=== PATIENT | female | born 1980 | race Caucasian/White ===

== ENCOUNTER 2019-03-10 19:08 | Outpatient (REF) | payer BC, SELFPAY ==
[2019-03-12 12:15] LABS: Chlamydia Result Negative; GC Result Negative; Specimen Description URINE
== END 2019-03-10 19:28 ==
LOC: LBN 19:08
PROVIDERS: PCP Family Medicine; Visit Provider Obstetrics & Gynecology Gynecology
DX: Z11.3 Encounter for screening for infections with a predominantly sexual mode of transmission (principal)
CPT/HCPCS: 87491; 87591

== ENCOUNTER 2020-12-19 14:15 | Outpatient (REF) | payer BC, SELFPAY ==
--- NOTE | 2020-12-19 13:30 | PAPFT_PTH ---
PATIENT: Lisandra Huntley LOC: [facility] U#:[id number] AGE/SX: 40/F ROOM: RE12/19/[address]: BENJAMÍN Vanegas : 1980 BED: DIS: 12/19/2020 SPEC #: [id number] RECD: 12/19/20 17:40 STATUS: VERN REChristie #: [id number] ISHAAN: 12/19/20 13:[address]: Meghana Vega DEPT: [facility] Cytology RECD BY: Kassidy Bui ENTERED: 12/19/20 17:40 SP TYPE: PAPFT OTHR DR: Arpita Pruett Tissues: 1 - CX/ENDOCX FOR PAP SMEARS Procedures: PAP THIN PREP/UVM Screening HPV DNA PROBE Comments: [id number]
== END 2020-12-19 14:16 | disposition home or self-care (01) ==
LOC: LBN 14:15
PROVIDERS: PCP Family Medicine; Visit Provider Nurse Practitioner Family
DX: Z12.4 Encounter for screening for malignant neoplasm of cervix (principal); Z11.51 Encounter for screening for human papillomavirus (HPV)
CPT/HCPCS: 88142; 87624

== ENCOUNTER 2023-08-29 09:20 | Day surgery (SDC) | payer BC, SELFPAY ==
--- NOTE | 2023-08-28 16:29 | W.COLOREPORT ---
Date of service: 08/29/23 Time of Service: 10:50 Colonoscopy Report Date of procedure: 08/29/23 Pre-op diagnosis general: Rectal pain and bleeding. History of fistula Post-op diagnosis procedure note: other (anal fissure) Surgeon: Maria T Castlelano Anesthesia Type: General:No Airway Estimated blood loss (mL): 0 Pathology: none sent Complications: None Disposition: same day Prep: Miralax/Dulcolax Retraction Time: 10 Procedure Description: After informed consent was obtained the patient was taken to the procedure room and placed in a left decubitous position. Monitors were applied and a time out was done. The patients name, date of , procedure, allergies to medications and metal in their body was reviewed. The patient was then sedated. Once sedated and comfortable a rectal exam was done. External exam-hemorrhoidal. Internal exam revealed a normal sphincter tone and no palpable masses. The scope was then introduced and retrofelexed. No internal hemorrhoids were identified. there is no rectal stenosis. She has an anal fissure 6 o'clock position, it appears to be approximately 50% healed. There is no active bleeding.. The scope was then advanced to the cecum difficulty. The TI and appendiceal orifice were identified. The prep was BBPS 3 in all segments for total of 9. The scope was then slowly retracted over 10 minutes. There are no polyps, AVMs, or diverticula visualized today. Mucosa appears pink and healthy with a normal vascular. The scope was removed and the patient was woken up and taken back to Same day surgery in stable condition. The patient tolerated the procedure well and there were no immediate complications. Follow up: The patient should follow up in 10 years unless they develop changes in bowel habits or other new gastrointestinal complaints.
--- NOTE | 2023-08-28 16:30 | PDOC.DSDIS_ITS ---
Date of service: 08/29/23 Time of Service: 10:54 Discharge Plan Disposition Patient Disposition: Home Condition: Good Discharge Details Reason For Visit: Exam under anesthesia and colon scope Attending Provider: Maria T Castellano Primary Care Provider: Donya Smith Home Meds and New Rx's Prescriptions: Continued omega-3 fatty acids 500 mg capsule 500 mg PO DAILY nitroglycerin 2 % ointment 1 inch transdermal BID Qty: 48 0RF Patient Comments: 08/29/23 pt has not used rhus extracts-herbal drugs 150 mg tablet 1 tab PO DAILY PRN (Reason: joint pain) Patient Comments: Rhus tox 30C cholecalciferol (vitamin D3) 10 mcg/mL (400 unit/mL) drops 10 mcg PO DAILY ascorbic acid (vitamin C) 500 mg capsule 500 mg PO DAILY valacyclovir 500 mg tablet 500 mg PO BID Qty: 30 2RF glucosamine sulfate 2KCl 1,000 MG tablet 1,000 mg PO DAILY Zyrtec 10 MG capsule 10 mg PO DAILY norethindrone (contraceptive) 0.35 mg tablet 0.35 mg PO DAILY Qty: 84 3RF mirtazapine 15 mg tablet 15 mg PO QHS lorazepam 0.5 mg tablet 0.5 mg PO QHS PRN multivitamin [Daily Multi-Vitamin] 1 EACH tablet 1 ea PO DAILY naproxen sodium [Aleve] 220 MG capsule 220 mg PO DIRECTED PRN Discontinued bisacodyl [Dulcolax (bisacodyl)] 5 mg tablet,delayed release (DR/EC) 5 mg PO ONCE Qty: 4 0RF Rx Instructions: Take per colonoscopy instructions provided by ordering providers office polyethylene glycol 3350 17 gram/dose powder 17 g PO ONCE Qty: 238 0RF Rx Instructions: Take per colonoscopy instructions provided by ordering providers office Discharge Instructions Additional Instructions: DSU Colonoscopy Post- Op Instructions Instructions for Everyone who is given Anesthesia: For your safety, please do the following for the next twenty-four (24) hours: *Do Not operate a motor vehicle (car, truck, motorcycle, etc.) *Do Not drink alcoholic beverages or use any recreational drugs for the first 24 hours or while taking pain medications. The medications in your body may have a reaction that can be dangerous. *Do Not make any important decisions or sign any important papers. Findings: Anal fissure -Fiber supplement daily -Repeat colonoscopy in 10 years -Continue Nitro ointment twice a day Follow up: 6 wks time 1. No lifting over 20 pounds or strenuous activity for the first 24 hours after your procedure. After 24 hours there are no restrictions on your activity but you may feel fatigued for a few days. 2. After you arrive home you may have a light meal and return to your normal diet as you can tolerate it without feeling sick to your stomach. 3. You may have a bloated, gaseous feeling in your belly (abdomen) after a colonoscopy. Passing gas and belching will help. Walking or lying down on your left side with your knees flexed may relieve the discomfort. Call the office at [phone] (Office) or [phone] (Hospital) right away if you notice any of the following: a.Vomiting of blood or ?coffee ground stools?. b.Rectal bleeding 1Tbsp, blood clots or continuous bleeding. c.Severe belly (abdominal) pain. d.A hard distended belly (abdomen) and an inability to pass gas. 4. Please don?t expect to have a normal BM (bowel movement) for 2-3 days after your procedure. 5. If there are questions regarding the findings of your procedure, please contact your doctor 6. If you are unable to contact your doctor with a problem, contact the hospital at [phone]. 7. Continue all your regular medications unless directed otherwise. I understand the above instructions and have no questions. Signature of Patient or Adult Escort Name of Responsible Adult Escort Signature of Nurse Date/Time Activity:: See above Diet:: See above DS: Diagnosis Discharge Diagnosis (1) Rectal bleeding: Status: Acute (2) Rectal pain, chronic: Status: Acute Asessment and Plan: The patient is seen and examined after their colonoscopy.? The patient has been able to pass gas.? They are not having abdominal pain.? They have been able to tolerate liquids and a snack.? They do not have any nausea or vomiting.? They are not having any chest pain or shortness of breath.??? They are not having any rectal bleeding. Their vital signs have been stable-see nursing notes. We discussed findings during their colonoscopy, and any biopsies that were done/polyps that were removed. The patient will be sent a letter with any biopsy results, and when to repeat the colonoscopy.-see discharge instructions. Patient was given explicit instructions to follow-up regarding colonoscopy-refer to discharge instructions.? We reviewed resumption of medications.Patient verbalized understanding and discharged in stable and satisfactory condition- See nursing notes (3) Internal hemorrhoids: Status: Acute (4) Depression: Status: Chronic (5) Anxiety: Status: Chronic (6) Chronic anal fissure: Status: Acute
[2023-08-29 09:40] VITALS: BP 119/95; PULSE 109; RESP 16; TEMP 36.4; O2SAT 99
[2023-08-29] MEDS: Lactated Ringers 1,000 ML 80 ML IV (10:03)
[2023-08-29 10:08] VITALS: BMI 33.5
--- NOTE | 2023-08-29 10:08 | W.ANESPRE ---
General Info Date of Service Date Performed: 08/29/23 Height: 5 ft 3 in Weight: 85.9 kg Body Mass Index (BMI): 33.5 Surgical Procedure: Operation Date: 08/29/23 10:05 Proposed Procedure Side Surgeon p Colonoscopy Maria T Castellano, Actual Procedure Side Surgeon p Colonoscopy Right Maria T Castellano, Meds Allergies and Home Medications Allergies Allergy/AdvReac Type Severity Reaction Status Date / Time Penicillins Allergy Unknown Verified 08/29/23 09:55 povidone-iodine Allergy Unknown Verified 08/29/23 09:55 [From Betadine] iodine Allergy Skin Rash Verified 08/29/23 09:55 citalopram hydrobromide AdvReac Intermediate Psychosis Verified 08/29/23 09:55 [From Celexa] clindamycin AdvReac Intermediate rectal Verified 08/28/23 10:34 bleeding codeine AdvReac Intermediate increased Verified 08/29/23 09:55 hr clonazepam AdvReac Mild Swelling/Ed Verified 08/29/23 09:55 sami Home Medication Medication Instructions Recorded multivitamin (Daily Multi-Vitamin 1 ea PO DAILY 12/05/12 tablet) naproxen sodium 220 mg capsule 220 mg PO DIRECTED PRN 12/05/12 (Aleve) cetirizine 10 mg capsule (Zyrtec) 10 mg PO DAILY 03/28/15 glucosamine sulfate 2KCl 1,000 mg 1,000 mg PO DAILY 03/28/15 tablet omega-3 fatty acids 500 mg capsule 500 mg PO DAILY 03/15/22 rhus extracts-herbal drugs 150 mg 1 tab PO DAILY PRN joint pain 09/18/22 tablet ascorbic acid (vitamin C) 500 mg 500 mg PO DAILY 03/31/23 capsule cholecalciferol (vitamin D3) 10 10 mcg PO DAILY 03/31/23 mcg/mL (400 unit/mL) oral drops valacyclovir 500 mg tablet 500 mg PO BID #30 tabs 03/31/23 norethindrone (contraceptive) 0.35 0.35 mg PO DAILY #84 tabs 04/21/23 mg tablet lorazepam 0.5 mg tablet 0.5 mg PO QHS PRN 08/07/23 mirtazapine 15 mg tablet 15 mg PO QHS 08/07/23 nitroglycerin 2 % transdermal 1 inch transdermal BID #48 grams 08/22/23 ointment Current Visit Medications: Current Medications Generic Name Dose Route Start Last Admin Trade Name Marlene PRN Reason Stop Dose Admin Ringer's Solution 1,000 mls @ 80 mls/hr 08/29/23 06:00 08/29/23 10:03 IV 08/29/23 23:59 80 mls/hr INFUSION PETERSON Administration IV Miscellaneous Supplies 1 each 08/29/23 06:00 Iv Access IV 08/29/23 23:59 DIRECTED PETERSON Sodium Chloride 0 ml 08/29/23 06:00 Normal Saline Flush 10 Ml Syr IV 08/29/23 23:59 PRN PRN Sodium Chloride 0 ml 08/29/23 06:00 Normal Saline 10 Ml Vial IJ 08/29/23 23:59 DIRECTED PRN Sterile Water 0 ml 08/29/23 06:00 Water,Injection,Sterile 10 Ml Vial IJ 08/29/23 23:59 DIRECTED PRN PFSH Active Problems Active Problems: Problem Status Onset Code Anxiety F41.9 Rectal bleeding K62.5 Rectal pain, chronic K62.89, G89.29 Internal hemorrhoids K64.8 Depression F32.A Hallux valgus M20.10 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 K06.9, B00.9 Reactive depression (situational) 08/31/13 F32.9 Medical History Medical History PMS (premenstrual syndrome) Overweight Osteoarthritis Sleep disturbance History of ovarian cyst Surgical History Surgical History H/O unilateral oophorectomy left, 2013 Anal fistula fistulectomy 2005 Tobacco Smoking/Tobacco Use Status: Never Alcohol Alcohol Intake: current Alcohol intake frequency: a few times a month Substance Use Substance use: Never Substance use type: does not use Prental History History 0 Para Hx # Term Pregnancies Multiple births Hx # Pregnancies Ectopic pregnancies AB induced Hx Number of Living Children AB spontaneous Vital Signs and Lab Results Vital Signs Most Recent Vital Signs in EMR: Most Recent Vital Signs Temp Pulse Resp BP Pulse Ox 36.4 C L 109 H 16 119/95 H 99 08/29/23 09:40 08/29/23 09:40 08/29/23 09:40 08/29/23 09:40 08/29/23 09:40 Point of Care Results Point of Care Results: POC- Test(urine) Negative 08/29/23 10:07 Lab Results Blood Type / Crossmatch: No Data to Display Complete Blood Count: No Data to Display Complete Metabolic Panel: No Data to Display Liver Function Panel: No Data to Display Coagulation Panel: No Data to Display Cardiac Panel: No Data to Display Arterial Blood Gas: No Data to Display Venous Blood Gas: No Data to Display Pancreas Panel: No Data to Display Thyroid Panel: No Data to Display Infectious Disease: No Data to Display Blood Cultures: No Data to Display Toxicology Panel: No Data to Display Panel: No Data to Display Anesthesia Assessment and Plan Anesthesia History Personal History: No History of Anesthesia Complications Family History: No Family History of Anesthesia Complications Exercise Tolerance Exercise Tolerance: Metabolic Equivalents>4 Pertinent Negatives Pertinent Negatives: No Symptoms of GERD Cardiac & Pulmonary Exam Cardiac Exam: Normal S1/S2 Heart Sounds Pulmonary Exam: Clear Bilateral Breath Sounds Implantable Cardiac Device Does patient have a Pacemaker or an ICD?: No Airway Exam Known Difficult Airway: No Mallampati Class: 2 Mouth Opening: Normal (> 3cm) Thyromental Distance: Greater than 3 cm Neck Range of Motion: Full ROM Neck Circumference: Normal Teeth Condition: Normal Dentition ASA Classification ASA Score: ASA 2 Emergency Case?: No NPO Status NPO Status: NPO Clears >2 hours, Solids >8 hours Status Status: Not Relevant due to Medical History Anesthesia Plan Resuscitation Status: Full Code Anesthesia Technique: General Anesthesia Airway Planned: Natural Airway Monitors Used: Standard Monitors
[2023-08-29 10:40] VITALS: BP 105/70; PULSE 93; RESP 16; TEMP 36.4; O2SAT 98
--- NOTE | 2023-08-29 10:44 | W.ANESPOSTOP ---
Postoperative Evaluation Date, Time and Location Date Performed: 08/29/23 Time Performed: 10:44 Patient Location: Day Surgery Unit Vital Signs Most Recent Imported Vital Signs: Most Recent Vital Signs Temp Pulse Resp BP Pulse Ox 36.4 C L 93 H 16 105/70 98 08/29/23 10:40 08/29/23 10:40 08/29/23 10:40 08/29/23 10:40 08/29/23 10:40 Pain Score Most Recent Pain Score: Most Recent Pain Score Pain Level 0 08/29/23 10:40 Assessment Mental Status: Awake (Alert & Oriented to Patient Baseline) Airway and Respiratory Function: Patent airway with normal (patient baseline) respiratory exam Cardiovascular Function: Hemodynamically Stable Hydration Status: Adequately Hydrated Nausea & Vomiting: No Nausea or Vomiting Pain: Pt. Denies Any Pain Peripheral Nerve Block: Patient did not receive a nerve block
== END 2023-08-29 11:38 | disposition home or self-care (01) ==
LOC: SUR 09:20
PROVIDERS: PCP Naturopath; Visit Provider Surgery
PROC: 0DJD8ZZ Inspection of Lower Intestinal Tract, Via Natural or Artificial Opening Endoscopic (ICD-10-PCS; CPT 45378; principal; 2023-08-29 10:00)
DX: K60.1 Chronic anal fissure (principal); K62.89 Other specified diseases of anus and rectum; G89.29 Other chronic pain; M19.90 Unspecified osteoarthritis, unspecified site; G47.9 Sleep disorder, unspecified; F32.A Depression, unspecified
CPT/HCPCS: 45378; 81025; J2001

== ENCOUNTER 2024-05-04 01:20 | Outpatient (CLI) | payer BC, SELFPAY ==
--- NOTE | 2024-05-04 | DI.MAMMO_ITS ---
Exam(s) MAMMO SCREENING EXAM: MAMMO SCREENING CLINICAL HISTORY: SCREENING TECHNIQUE: Bilateral full field digital CC and MLO mammographic images were obtained with 3D tomosyn thesis and utilizing computer aided detection (CAD). COMPARISON: Available for comparison. FINDINGS: Masses/Architectural Distortion: There are stable bilateral breast nodules. No new nodules are seen. No areas of architectural distortion are present. Microcalcifications: No suspicious pleomorphic-type are seen. Skin Thickening/Nipple Retraction: None. IMPRESSION: 1. No significant interval change with no specific features of malignancy noted. 2. Unless there is more urgent need, screening mammography is recommended, as per [employer] guidelines. BI-RADS Category 2 - Benign Findings Breast Density - Category B - Scattered areas of fibroglandular density Breast density category C or D implies that the patient has dense breast tissue. Dense breast tissue is very common and is not abnormal but dense breast tissue can make it harder to find cancer on a ma mmogram. Also, dense breast tissue may increase their breast cancer risk. This information about the result of the mammogram report was provided to the patient to raise their awareness. Use this report when you speak with the patient about their risks for breast cancer, which includes their family hist ory. At that time, you may recommend for more screening tests (Ultrasound or MRI) as they might be us eful based on their risk. A negative radiographic report should not delay biopsy if a dominant or clinically suspicious mass is present. Up to ten percent of cancers are not identified on mammography. A negative report may reinforce clinical impression. Adenosis and dense breasts may obscure an underlying neoplasm. False positive reports average 6 to 10%. Patient will receive a letter notifying them of these results.
== END 2024-05-04 01:40 ==
LOC: DI 01:20
PROVIDERS: PCP Naturopath; Visit Provider Naturopath
DX: Z12.31 Encounter for screening mammogram for malignant neoplasm of breast (principal)
CPT/HCPCS: 77063; 77067

== ENCOUNTER 2024-06-08 17:50 | Outpatient (REF) | payer BC, SELFPAY ==
--- NOTE | 2024-06-08 16:30 | PAPFT_PTH ---
PATIENT: Lisandra Huntley LOC: [facility] U#:[id number] AGE/SX: 43/F ROOM: RE06/08/[address]: Lexie El : 1980 BED: DIS: 06/08/2024 SPEC #: [id number] RECD: 06/08/24 17:59 STATUS: VERN REChristie #: [id number] ISHAAN: 06/08/24 16:[address]: Lexie El DEPT: [facility] Cytology RECD BY: Kassidy Bui ENTERED: 06/08/24 17:59 SP TYPE: PAPFT OTHR DR: Casie Connors Tissues: 1 - CX/ENDOCX FOR PAP SMEARS Procedures: PAP THIN PREP/UVM Screening HPV DNA PROBE Comments: [id number] (HPV 16 & 18/45)
== END 2024-06-08 17:51 | disposition home or self-care (01) ==
LOC: LBN 17:50
PROVIDERS: PCP Registered Nurse; Visit Provider Obstetrics & Gynecology Gynecology
DX: Z12.4 Encounter for screening for malignant neoplasm of cervix (principal)
CPT/HCPCS: 88142; 87624

== ENCOUNTER 2024-12-15 12:08 | Outpatient (REF) | payer BC, SELFPAY | END 2024-12-15 12:09 | disposition home or self-care (01) | LOC: LBN 12:08 | PROVIDERS: PCP Naturopath; Visit Provider Obstetrics & Gynecology | DX: N89.8 Other specified noninflammatory disorders of vagina (principal); R30.0 Dysuria; N76.0 Acute vaginitis | CPT/HCPCS: 87480; 87510; 87660 ==

== ENCOUNTER 2024-12-23 10:45 | Outpatient (REF) | payer BC, SELFPAY | END 2024-12-23 10:46 | disposition home or self-care (01) | LOC: LBN 10:45 | PROVIDERS: PCP Naturopath; Visit Provider Obstetrics & Gynecology | DX: N76.0 Acute vaginitis (principal) | CPT/HCPCS: 87480; 87510; 87660 ==

== ENCOUNTER 2025-01-11 17:46 | Outpatient (REF) | payer BC, SELFPAY | END 2025-01-11 17:47 | disposition home or self-care (01) | LOC: LBN 17:46 | PROVIDERS: PCP Naturopath; Visit Provider Obstetrics & Gynecology | DX: N76.0 Acute vaginitis (principal) | CPT/HCPCS: 87480; 87510; 87660 ==

== ENCOUNTER 2025-05-11 02:33 | Outpatient (CLI) | payer BC, SELFPAY ==
--- NOTE | 2025-05-11 | DI.MAMMO_ITS ---
Exam(s) MAMMO SCREENING EXAM: MAMMO SCREENING CLINICAL HISTORY: SCREENING. TECHNIQUE: Bilateral full field digital CC and MLO mammographic images were obtained with 3D tomosynthesis and utilizing computer aided detection (CAD). COMPARISON: Prior mammograms were reviewed. FINDINGS: There has been no significant change in the appearance and distribution of the fibroglandular tissue. Benign-appearing right breast nodules remain unchanged and have appearance of benign intramammary lymph nodes. There are no new spiculated masses nor new malignant appearing microcalcification groups. There is no significant architectural distortion nor skin thickening-retraction. IMPRESSION: Stable benign-appearing findings. No radiographic evidence of malignancy. BI-RADS Category 2 - Benign Findings Breast Density - Category B - There are scattered areas of fibroglandular density. Breast density Category C or D implies that the patient has dense breast tissue. Dense breast tissue can make it harder to find cancer on a mammogram. Dense breast tissue is also associated with an increased risk of breast cancer. This information about the result of the mammogram report was provided to the patient to raise their awareness. Use this report when you speak with the patient about their risks for breast cancer, which includes their family history. At that time, you may recommend additional screening tests (Ultrasound or MRI) as these tests may add significant information. A negative radiographic report should not delay biopsy if a dominant or clinically suspicious mass is present. Up to ten percent of cancers are not identified on mammography. A negative report may reinforce clinical impression. Adenosis and dense breasts may obscure an underlying neoplasm. False positive reports average 6 to 10%. Patient will receive a letter notifying them of these results.
== END 2025-05-11 02:53 ==
LOC: DI 02:33
PROVIDERS: PCP Naturopath; Visit Provider Naturopath
DX: Z12.31 Encounter for screening mammogram for malignant neoplasm of breast (principal); R92.323 Mammographic fibroglandular density, bilateral breasts
CPT/HCPCS: 77063; 77067